=== PATIENT | male | born 1970 | race African-American/Black ===

== ENCOUNTER 2022-11-30 14:08 | Emergency (ER) | payer BC, SELFPAY ==
--- NOTE | ~2022-11-30 | XR_ITS ---
EXAMINATION: XR chest 1V portable 11/30/2022 14:55 INDICATION: Cough. Covid positive. PROCEDURE: 2 view chest COMPARISON: No prior studies for comparison. FINDINGS: The lungs are clear. The cardiomediastinal silhouette is within normal limits. There are no pleural effusions. There is no pneumothorax suspected. IMPRESSION: 1: NO ACUTE CARDIOPULMONARY DISEASE. Reviewed, dictated and finalized at location L.
[2022-11-30 14:33] VITALS: BP 146/85; PULSE 75; RESP 16; TEMP 36.4; O2SAT 99
--- NOTE | 2022-11-30 15:37 | ED.GENADULT ---
HPI - General Adult General Chief complaint: Upper Respiratory Infection Stated complaint: cough Time Seen by Provider: 11/30/22 14:44 Source: patient Mode of arrival: ambulatory Limitations: no limitations History of Present Illness HPI narrative: This is a 51-year-old male who presents to the ED with chief complaint of cough for the past couple of weeks. He has a positive COVID test at an urgent care last week and just seeking further evaluation of this. States he is still having cough and is occasionally productive with clear sputum. Denies shortness of breath, chest pain, fevers. He does report some chills. Denies any further complaints. Related Data Allergies Allergy/AdvReac Type Severity Reaction Status Date / Time No Known Allergies Allergy Verified 11/30/22 14:38 Review of Systems Review of Systems: All systems as dictated in HPI Exam Narrative: GENERAL: Well-appearing, well-nourished, and in no acute distress. HEAD: Normocephalic, atraumatic. EYES: PERRLA and EOMI. ENT: Nares clear, no rhinorrhea or epistaxis. Mucous membranes moist. Oropharynx without tonsillar hypertrophy exudate or other lesions. NECK: Supple. No adenopathy or masses. CHEST: No respiratory distress. Clear to auscultation. No wheezes rales or rhonchi. 99% on room air. HEART: Regular rate and rhythm. No murmur heard. Normal peripheral pulses. ABDOMEN: Soft, nontender, nondistended, normal active bowel sounds. MSK: Normal range of motion. No edema. SKIN: Warm, dry, no rash. NEURO: Alert and oriented x3. No focal deficits. PSYCH: Normal mood and affect. Course Vital Signs Vital signs: Vital Signs Temperature 97.6 F 11/30/22 14:33 Pulse Rate 75 11/30/22 14:33 Respiratory Rate 16 11/30/22 14:33 Blood Pressure 146/85 H 11/30/22 14:33 Pulse Oximetry 99 11/30/22 14:33 Oxygen Delivery Room Air 11/30/22 14:33 Temperature 97.6 F 11/30/22 14:33 Pulse Rate 75 11/30/22 14:33 Respiratory Rate 16 11/30/22 14:33 Blood Pressure 146/85 H 11/30/22 14:33 Pulse Oximetry 99 11/30/22 14:33 Oxygen Delivery Room Air 11/30/22 14:33 Medical Decision Making MDM Narrative Medical decision making narrative: This is a 51-year-old male who presents to the ED with chief complaint of cough after being tested positive for COVID last week. Vitals are normal. Satting well on room air. Exam benign. Chest x-ray is also benign. Symptoms consistent with viral syndrome. We discussed supportive measures for home. Prescription for guaifenesin given. Given that he has had some chills and production of sputum, Z-Miah prescription was written. Pt will be discharged in stable condition. Return precautions given and supportive measures discussed. Pt is understanding and agreeable with plan for discharge and follow-up with PCP. Vital Signs Vital Signs: Vital Signs Temperature 97.6 F 11/30/22 14:33 Pulse Rate 75 11/30/22 14:33 Respiratory Rate 16 11/30/22 14:33 Blood Pressure 146/85 H 11/30/22 14:33 Pulse Oximetry 99 11/30/22 14:33 Oxygen Delivery Room Air 11/30/22 14:33 Temperature 97.6 F 11/30/22 14:33 Pulse Rate 75 11/30/22 14:33 Respiratory Rate 16 11/30/22 14:33 Blood Pressure 146/85 H 11/30/22 14:33 Pulse Oximetry 99 11/30/22 14:33 Oxygen Delivery Room Air 11/30/22 14:33 Discharge Plan Discharge Clinical Impression: Acute viral syndrome Patient Disposition: Home, Self-Care Condition: Stable Instructions: Antibiotic Form Additional Instructions: Your symptoms are consistent with viral syndrome due to COVID. It is likely that you continue to have a cough. It should continue to get better gradually over the coming weeks. Please take azithromycin in case there is a superimposed bacterial infection. You can also take guaifenesin for cough relief. If you have any new or worsening symptoms like inability to breathe, chest pain or uncontrollable
== END 2022-11-30 16:37 | disposition home or self-care (01) ==
PROVIDERS: Emergency Provider Physician Assistant
DX: U07.1 COVID-19 (principal)
CPT/HCPCS: 71045; 99283